=== PATIENT | male | born 1970 | race Caucasian/White ===

== ENCOUNTER 2017-12-07 08:00 | Outpatient (RCR) | payer OTHER | END 2018-01-10 13:12 | disposition home or self-care (01) | LOC: WSPT 08:00 | DX: M75.42 Impingement syndrome of left shoulder (principal) ==

== ENCOUNTER → 2018-01-13 | Outpatient (CLI) | payer OTHER | LOC: ZCOL.LAB 17:12 | DX: Z01.812 Encounter for preprocedural laboratory examination (principal); Z86.14 Personal history of Methicillin resistant Staphylococcus aureus infection ==